=== PATIENT | male | born 1985 ===

== ENCOUNTER 2020-07-05 22:43 | Emergency (ER) | payer SELFPAY ==
[~2020-07-05] VITALS: Ht 160 cm; Wt 45.5 kg
[2020-07-05 23:13] VITALS: BP 148/95
== END 2020-07-06 00:30 | disposition left against medical advice (07) ==
LOC: EMS 22:43
DX: R55 Syncope and collapse (principal); Z53.21 Procedure and treatment not carried out due to patient leaving prior to being seen by health care provider